=== PATIENT | female | born 1995 | race Two or more races ===

== ENCOUNTER 2017-01-18 21:19 | Inpatient (IN) | payer MEDICAID ==
[2017-01-18] MEDS ORDERED: TEMAZEPAM 15 MG CAP PO PRN (21:49)
[2017-01-18] MEDS ORDERED: ACETAMINOPHEN 325 MG TAB PO PRN (21:49)
[2017-01-18] MEDS ORDERED: ONDANSETRON 4 MG/2 ML VIAL IVP PRN (21:49)
[2017-01-18] MEDS ORDERED: ONDANSETRON DISINTEGRATING 4 MG TAB PO PRN (21:49)
[2017-01-18] MEDS ORDERED: oxyCODONE IR 5 MG TAB PO PRN (21:49)
--- NOTE | 2017-01-18 22:32 | GHP ---
[f rep st] HISTORY AND PHYSICAL DATE OF ADMISSION: 01/18/2017 CHIEF COMPLAINT: Abdominal pain. HISTORY OF PRESENT ILLNESS: This is a 21-year-old female, who is just under 2 months after a , presented with an onset of abdominal pain. This started yesterday evening, severe, associated with some nausea, but no vomiting, on the right side, radiating to her back. She lives in [place]. Because of this, she presented to the emergency department there. She was admitted. Ultrasound showed gallstones, elevated LFTs, elevated lipase. Initial plan was for a cholecystectomy, though, there became concern for common bile duct stone given the degree of elevation of her LFTs. Her AST was in the 400s and her ALT was in the 100s. Her bilirubin was just under 2. Because of this, Dr. Daniels was consulted. He recommended transfer to this hospital for interventional assessment prior to possible cholecystectomy. When I am seeing her, she is comfortable, though she received 5 mg of morphine en route. PAST MEDICAL/SURGICAL HISTORY: Shows her to have: 1. Recent . 2. Depression. MEDICATIONS: Please see medication reconciliation. ALLERGIES: none FAMILY HISTORY: Reviewed and noncontributory. SOCIAL HISTORY: She does not drink or smoke. She is accompanied by her . REVIEW OF SYSTEMS: A 10-point review of systems is conducted and is negative except per HPI. PHYSICAL EXAMINATION: GENERAL: She appears comfortable, in no acute distress. VITAL SIGNS: Her pulse is mildly low. HEENT: Normocephalic, atraumatic. CARDIOVASCULAR: Regular rate and rhythm. No murmurs, rubs, or gallops. PULMONARY: Lungs clear to auscultation bilaterally. ABDOMEN: Soft. She has no masses appreciated. She has a Keller sign and some mild right upper quadrant tenderness. SKIN: No rash. : No Chin. NEUROLOGIC: Alert and oriented x3. She is moving all extremities. PSYCHIATRIC: Normal mood and affect. affect. LABORATORY DATA: Reviewed per HPI. Notable also for a white count of 8. Lipase is 17,000. Elevated LFTs. DATA: 1. I discussed this with Dr. Lux, from [place], accepted for transfer as a direct admission. 2. I reviewed her chart from [place], what was available. IMPRESSION AND PLAN: This is a 21-year-old female, with gallstone pancreatitis , possible common bile duct stone. Gallstone pancreatitis, possible common bile duct stone: Dr. Daniels has been consulted. I agree with plans for EUS tomorrow to evaluate possible large stone. If there is a stone, he will perform an ERCP with stone extraction. She will also need a cholecystectomy at some point. I have not consulted General Surgery yet. We will make her n.p.o. , provide her supportive care including IV fluids and pain management overnight. She currently appears comfortable. I believe she got a dose of antibiotics prior to transfer, though I will not continue these now, unless she becomes febrile. I was told she was going to receive a dose of Rocephin and Flagyl, which should cover her until tomorrow morning. /[id number]/MODL MTDD
[2017-01-18] MEDS: NS 1,000 ML IV SCH ×2 (22:48→23:31)
[2017-01-19 04:53] LABS: % IMMATURE GRANULYOCYTES 0.4 % (0.0-1.1); ABSOLUTE IMMATURE GRANULOCYTES 0.04 10^3/uL (0.00-0.10); ADD DIFF? NO; HEMATOCRIT 35.6 % (38.0-47.0); HEMOGLOBIN 11.6 g/dL (12.6-16.3); MEAN CELL HEMOGLOBIN 28.6 pg (27.9-34.1); MEAN CELL HEMOGLOBIN CONCENTR. 32.6 g/dL (32.4-36.7); MEAN CELL VOLUME 87.9 fL (81.5-99.8); MEAN PLATELET VOLUME 10.5 fL (8.7-11.7); PLATELET COUNT 240 10^3/uL (150-400); RED BLOOD CELL COUNT 4.05 10^6/uL (4.18-5.33); RED CELL DISTRIBUTION WIDTH 13.2 % (11.5-15.2)
[2017-01-19 04:54] LABS: ADD MORPH? NO; ADD SCAN? NO; ATYPICAL LYMPHOCYTE FLAG 10 (0-99); FRAGMENT RBC FLAG 0 (0-99); LEFT SHIFT FLG 0 (0-99); LIPEMIA HEMOLYSIS FLAG 80 (0-99); PLATELET CLUMPS FLAG 0 (0-99)
[2017-01-19 05:05] LABS: ALANINE AMINOTRANSFERASE 214 IU/L (9-52); ALKALINE PHOSPHATASE 185 IU/L (38-126); ANION GAP 8 mEq/L (8-16); ASPARTATE AMINOTRANSFERASE 219 IU/L (14-46); CALCIUM 8.7 mg/dL (8.5-10.4); CARBON DIOXIDE 24 mEq/l (22-31); CHLORIDE 109 mEq/L (97-110); CREATININE 0.6 mg/dL (0.6-1.0); GLOMERULAR FILTRATION RATE > 60; GLUCOSE 77 mg/dL (70-100); POTASSIUM 3.9 mEq/L (3.5-5.2); SODIUM 141 mEq/L (134-144); TOTAL PROTEIN 5.5 g/dL (6.3-8.2)
--- NOTE | 2017-01-19 05:58 | SOAPPROG ---
GADIEL Progress Note Assessment/Plan: Assessment: Plan: 01/19/17 05:57 GI note Chart reviewed. Will plan on EUS/ERCP possibly today. Keep NPO Objective: Vital Signs Temp Pulse Resp BP Pulse Ox 36.9 C 60 16 98/58 L 96 01/19/17 04:00 01/19/17 04:00 01/19/17 04:00 01/19/17 04:00 01/19/17 04:00 Laboratory Results 01/19/17 04:30 01/19/17 04:30 ICD10 Worksheet Patient Problems: Problems Problem Status Onset Acute biliary pancreatitis Acute - ICD10 Problem Qualifiers (1) Acute biliary pancreatitis
[2017-01-19] MEDS: NS 1,000 ML IV SCH ×2 (08:00→22:09)
--- NOTE | 2017-01-19 08:39 | HOSPPROG ---
Hospitalist Progress Note Assessment/Plan: Patient is a 21-year-old female who is after having a . She presented with onset of abdominal pain that was quite severe. She has elevated liver enzymes. She will be seen by Dr. Daniels later today. Today is my 1st encounter with the patient chart reviewed. * gallstone pancreatitis with possible bile duct stone To get an EUS today w Dr Daniels * plan. Will await further input from Dr. Daniels and hopefully can discharge later today Subjective: Patient continues to have some right upper quadrant pain that radiates to Objective: Vital Signs Temp Pulse Resp BP Pulse Ox 36.7 C 60 16 103/50 L 96 01/19/17 07:12 01/19/17 07:12 01/19/17 07:12 01/19/17 07:12 01/19/17 07:12 Laboratory Results 01/19/17 04:30 01/19/17 04:30 01/18/17 01/19/17 01/20/17 05:59 05:59 05:59 Intake Total 1250 Balance 1250 - Physical Exam Constitutional: no apparent distress, obese, uncomfortable Eyes: PERRL Ears, Nose, Mouth, Throat: hearing normal Cardiovascular: regular rate and rhythym Respiratory: no respiratory distress Gastrointestinal: normoactive bowel sounds, tenderness (Right upper quadrant) Skin: warm, normal color Musculoskeletal: full muscle strength Psychiatric: interacting appropriately ICD10 Worksheet Patient Problems: Problems Problem Status Onset Acute biliary pancreatitis Acute
[2017-01-19] MEDS: SERTRALINE HCL 25 MG TAB PO SCH (10:27)
[2017-01-19] MEDS: PRENATAL VIT 1 EACH TAB PO SCH (10:28)
[2017-01-19] MEDS: CETIRIZINE 10 MG TAB PO SCH (10:28)
[2017-01-19] MEDS ORDERED: GLUCAGON,HUMAN RECOMBINANT 1 MG VIAL ONE (15:26)
[2017-01-19] MEDS ORDERED: IOTHALAMATE MEG (CONRAY) 50 ML VIAL IV ONE (15:26)
[2017-01-19] MEDS ORDERED: LR 1,000 ML IV ONE (16:03)
[2017-01-19] MEDS ORDERED: fentaNYL 100 MCG/2 ML INJ ONE (16:11)
[2017-01-19] MEDS ORDERED: PROPOFOL 200 MG/20 ML VIAL ONE (16:11)
[2017-01-19] MEDS ORDERED: MIDAZOLAM 2 MG/2 ML VIAL ONE (16:31)
[2017-01-19] MEDS ORDERED: LIDOCAINE 2% 100 MG/5 ML SYR ONE (16:32)
[2017-01-19] MEDS ORDERED: ROCURONIUM 50 MG/5 ML VIAL ONE (16:32)
[2017-01-19] MEDS ORDERED: levOFLOXACIN 500 MG/DEXTROSE/100 ML BAG IV ONE (16:33)
[2017-01-19] MEDS ORDERED: INDOMETHACIN 50 MG SUPP PR ONE ×2 (16:36→16:38)
--- NOTE | 2017-01-19 17:08 | PDANEPAE ---
ANE Past Medical History - Pulmonary History Hx Sleep Apnea: No Sleep Apnea Screening Result - Last Documented: Negative - Endocrine History Hx Diabetes: No - Chronic Pain History Chronic Pain: No ANE Review of Systems Review of Systems: ANE Patient History - Allergies Allergies/Adverse Reactions: No Known Allergies Allergy (Unverified 01/18/17 21:49) - Home Medications Home Medications: Loratadine 10 mg PO DAILY 01/18/17 [Last Taken 2 Weeks Ago ~01/04/17] Pnv No.95/Ferrous Fum/Folic AC [ Multivitamin Tablet] 1 each PO DAILY [Last Taken 01/18/17] Sertraline HCl [Zoloft 25mg (*)] 25 mg PO DAILY 01/18/17 [Last Taken 01/17/17] - NPO status NPO Since - Liquids (Date): 01/17/17 NPO Since - Solids (Date): 01/17/17 - Smoking Hx Smoking Status: Never smoked ANE Labs/Vital Signs - Labs Result Diagrams: 01/19/17 04:30 01/19/17 04:30 - Vital Signs Blood Pressure: 103/49 Heart Rate: 69 Respiratory Rate: 14 O2 Sat (%): 90 Height: 162.56 cm Weight: 81.647 kg ANE Physical Exam - Airway Neck exam: FROM Mallampati Score: Class 2 Mouth exam: normal dental/mouth exam - Pulmonary Pulmonary: no respiratory distress - Cardiovascular Cardiovascular: regular rate and rhythym - ASA Status ASA Status: II ANE Anesthesia Plan Anesthesia Plan: general endotracheal anesthesia Urgent/Emergent Case: Judi lara completed preop but documented later for safe timely pt care
--- NOTE | 2017-01-19 17:13 | HOSPPROG ---
Hospitalist Progress Note Assessment/Plan: Patient is a 21-year-old female who is after having a . She presented with onset of abdominal pain that was quite severe. She has elevated liver enzymes. She will be seen by Dr. Daniels later today. Today is my 1st encounter with the patient chart reviewed. * gallstone pancreatitis with possible bile duct stone To get an EUS today w Dr Daniels * plan. patient down for the procedure this evening. She will require better midnight stay after getting sedation and an and I am unclear when she will be returning to the floor. This will make her inpatient status. Will get repeat labs in the morning. Objective: Vital Signs Temp Pulse Resp BP Pulse Ox 36.7 C 69 14 103/49 L 90 L 01/19/17 15:49 01/19/17 17:08 01/19/17 17:08 01/19/17 17:08 01/19/17 17:08 Laboratory Results 01/19/17 04:30 01/19/17 04:30 01/18/17 01/19/17 01/20/17 05:59 05:59 05:59 Intake Total 1250 Balance 1250 ICD10 Worksheet Patient Problems: Problems Problem Status Onset Acute biliary pancreatitis Acute
[2017-01-19] MEDS ORDERED: GLYCOPYRROLATE 0.2 MG/1 ML VIAL ONE ×2 (17:30)
--- NOTE | 2017-01-19 17:49 | SOAPPROG ---
SOJESSICA Progress Note Assessment/Plan: Assessment: Plan: 01/19/17 05:57 GI note Chart reviewed. Will plan on EUS/ERCP possibly today. Keep NPO 01/19/17 17:46 GI note S/p EGD/EUS/ERCP. See dictated note for details. + choledocholithiasis on EUS. ERCP performed with biliary decompression. + gastritis Keep NPO till tomorrow. EBL: Minimal Meds: General. Levaquin 500mg IV X 1. Rectal Indomethacin. Objective: Vital Signs Temp Pulse Resp BP Pulse Ox 36.7 C 69 14 103/49 L 90 L 01/19/17 15:49 01/19/17 17:08 01/19/17 17:08 01/19/17 17:08 01/19/17 17:08 Laboratory Results 01/19/17 04:30 01/19/17 04:30 01/18/17 01/19/17 01/20/17 05:59 05:59 05:59 Intake Total 1250 Balance 1250 ICD10 Worksheet Patient Problems: Problems Problem Status Onset Acute biliary pancreatitis Acute - ICD10 Problem Qualifiers (1) Acute biliary pancreatitis
[2017-01-19] MEDS ORDERED: NALOXONE HCL 0.4 MG/ML INJ IVP PRN (17:54)
[2017-01-19] MEDS ORDERED: ALBUTEROL 3 ML DEYVIAL IH PRN (17:54)
[2017-01-19] MEDS ORDERED: LR 500 ML IV PRN (17:54)
[2017-01-19] MEDS ORDERED: fentaNYL 100 MCG/2 ML INJ IVP PRN (17:54)
[2017-01-19] MEDS ORDERED: MEPERIDINE 25 MG/ML SYR IVP PRN (17:54)
[2017-01-19] MEDS ORDERED: ONDANSETRON 4 MG/2 ML VIAL IVP PRN (17:54)
--- NOTE | 2017-01-19 17:55 | POSTANESTH ---
Post Anesthetic Evaluation Cardiovascular Status: Normal, Stable Respiratory Status: Normal, Stable Level of Consciousness/Mental Status: Mildly Sleepy, Arousable Pain Control: Adequate, Prn Tx Ordered Nausea/Vomiting Control: Adequate, Prn Tx Ordered Complications Possibly Related to Anesthesia: None Noted
--- NOTE | 2017-01-19 18:26 | GPN ---
[f rep st] PROCEDURE NOTE DATE OF PROCEDURE: 01/19/2017 PROCEDURE: Esophagogastroduodenoscopy with biopsy, endoscopic ultrasound. INDICATION: Nely is a 21-year-old female who presents with an episode of acute pancreatitis. She was noted to have significantly elevated LFTs including alkaline phosphatase. On imaging, she was noted to have cholelithiasis as well as a dilated CBD. She presents for further evaluation and to rule out choledocholithiasis. CONSENT: Risks, benefits, and alternatives of the procedure were discussed in great detail with the patient. Risks of infection, bleeding, perforation, sedation, and pancreatitis were discussed. All questions answered. Informed consent was obtained. MEDICATIONS: General anesthesia. Please see Anesthesia record for details. ESTIMATED BLOOD LOSS: Insignificant. ESOPHAGOGASTRODUODENOSCOPY EXAMINATION: The Olympus upper endoscope was introduced into the mouth and advanced to the esophagus. The proximal, mid, and distal esophagus were normal in appearance. The stomach was entered and closely examined, including retroflexed views of angularis, cardia, and fundus. The mucosa in the antrum and body were erythematous, and biopsies were taken. The duodenal bulb and second portion of the duodenum appeared to be normal in appearance. ENDOSCOPIC ULTRASOUND EXAMINATION: The Olympus linear echoendoscope was introduced into the mouth and advanced to the second portion of the duodenum. The esophagus, stomach, and duodenum were visualized echosonographically. The pancreas was carefully examined from the uncinate process to the tail, where the spleen was seen. The pancreatic parenchyma was normal in appearance. No mass lesion or cystic lesion was noted. The pancreatic duct was not dilated. The common bile duct was seen, and there were several small 2-3mm stones seen. No liver lesions was noted. No suspicious periportal, peripancreatic, or perigastric nodes appreciated. IMPRESSION: Choledocholithiasis. RECOMMENDATIONS: Proceed with ERCP. /[id number]/MODL MTDD
--- NOTE | 2017-01-19 18:41 | GCON ---
[f rep st] CONSULTATION DATE OF CONSULTATION: 01/19/2017 REFERRING PHYSICIAN: Phil Vargas MD REASON FOR CONSULTATION: Acute pancreatitis/Increased LFTs CHIEF COMPLAINT: Abdominal pain HISTORY OF PRESENT ILLNESS: The patient is a 21-year-old female, who presents with complaints of abdominal pain. Since approximately 20 weeks of , the patient started to have upper abdominal pain. She describes the pain as very severe, which is sharp at times. It did radiate to the back. This pain occurred on a daily basis and can last minutes to hours. Upon delivery, which was approximately 2 months ago, she states the pain got a little bit better, but recently in the last several days, the pain got more severe. She also had significant symptoms of nausea. She believes that eating can exacerbate her symptoms with no alleviating factors. She presented to a hospital in [place], [place] with significantly elevated pancreatic enzymes consistent with acute pancreatitis. On imaging, was found to have cholelithiasis with ductal dilation. It was planned for her to get a cholecystectomy, but due to the significant possibility of choledocholithiasis, she was transferred here for further evaluation. I am being asked by Dr. Vargas to evaluate this patient in consultation regarding her abnormal LFTs. PAST MEDICAL HISTORY: Depression. PAST SURGICAL HISTORY: Cholecystectomy. ALLERGIES: NKDA. MEDICATIONS: No prescription medications. FAMILY HISTORY: No history of pancreatitis. SOCIAL HISTORY: No significant alcohol or tobacco use. REVIEW OF SYSTEMS: A 12-point comprehensive review of systems was asked. Pertinent positives and negatives per HPI. PHYSICAL EXAM: VITALS: Blood pressure 103/49, heart rate 69, respirations 14. GENERAL: Awake, alert, oriented x3. No distress. HEENT: Anicteric. Moist mucosa. NECK: No JVD. CARDIOVASCULAR: Regular rate and rhythm. Positive S1 , S2. No murmur is appreciated. LUNGS: Clear to auscultation bilaterally. No wheezes, rales, rhonchi. ABDOMEN: Soft, nontender, nondistended. Positive bowel sounds. No rebound. EXTREMITIES: No cyanosis, clubbing, edema. NEUROLOGIC: Cranial nerves 2-12 grossly intact. PSYCH: Normal affect. MUSCULOSKELETAL: No obvious joint effusions. LABORATORY DATA: WBCs 9.63, hemoglobin 11.3, hematocrit 35.7. AST 219, ALT 214 , alk phos 185. Lipase 1117. BUN 7, creatinine 0.6. ASSESSMENT AND PLAN: 1. Acute pancreatitis- biliary. Due to significant elevated alkaline phosphatase as well as prior imaging which did reveal common bile duct dilation. I have a moderate suspicion that she has choledocholithiasis. At this time, I recommend to proceed with EUS to evaluate the common bile duct. If any stones are visualized, would recommend to proceed with ERCP. The risks, benefits, and alternatives of the procedure were discussed in great detail with the patient. The risk of infection, bleeding, perforation, sedation, and pancreatitis were discussed. All questions answered. Informed consent obtained. Thank you for this consultation. /[id number]/MODL MTDD
--- NOTE | 2017-01-19 18:41 | GPN ---
[f rep st] PROCEDURE NOTE DATE OF PROCEDURE: 01/19/2017 PROCEDURE: Endoscopic retrograde cholangiopancreatography with biliary sphincterotomy, stone extraction. INDICATION: Nely is a 21-year-old female who presents with acute biliary pancreatitis. An EUS was performed and revealed choledocholithiasis. She presents for further evaluation and biliary decompression. CONSENT: Risks, benefits, and alternatives of the procedure were discussed in great detail with the patient. Risks of infection, bleeding, perforation, sedation, and pancreatitis were discussed. All questions answered and informed consent obtained. MEDICATIONS: General anesthesia. Please see Anesthesia record for details. Levaquin 500 mg IV x1. Indomethacin rectal 100 mg x1. ESTIMATED BLOOD LOSS: Insignificant. DESCRIPTION OF PROCEDURE: The Olympus duodenoscope was introduced into the mouth and advanced to second portion of the duodenum. The ampulla was brought into view and was normal in appearance. Using a [employer] sphincterotome and a 0.035 inch wire, a wire was advanced into the common bile duct and intrahepatics without difficulty using the wire guided technique. A limited injection was made to confirm position. The ampullary region did appear slightly tight on initial insertion of the sphincterotome.A 1.2 cm biliary sphincterotomy was performed. An occlusion cholangiogram was performed. The cholangiogram was interpreted in real time. The flow of contrast was adequate with adequate views of the entire biliary tree. Multiple balloon sweeps were made with a 9-12 and 12-15 mm balloon with extraction of debris and a few 2 mm stones. IMPRESSION: Choledocholithiasis- status post ERCP with biliary decompression. RECOMMENDATIONS: 1. N.p.o. until tomorrow. 2. Antibiotics x5 days. 3. Consider cholecystectomy soon. /[id number]/MODL MTDD
[2017-01-19 19:50] VITALS: RESP 16
[2017-01-20] MEDS: NS 1,000 ML IV SCH (04:53)
[2017-01-20 05:36] LABS: ALBUMIN 3.4 g/dL (3.5-5.0); BILIRUBIN,TOTAL 0.8 mg/dL (0.1-1.4); BILIRUBIN-CONJUGATED 0.3 mg/dL (0.0-0.5); BILIRUBIN-UNCONJUGATED 0.5 mg/dL (0.0-1.1); TOTAL PROTEIN 6.1 g/dL (6.3-8.2)
[2017-01-20 07:29] VITALS: BP 104/46; PULSE 71; TEMP 98.1; O2SAT 97
[2017-01-20] MEDS: SERTRALINE HCL 25 MG TAB PO SCH (09:15)
[2017-01-20] MEDS: CETIRIZINE 10 MG TAB PO SCH (09:15)
[2017-01-20] MEDS: PRENATAL VIT 1 EACH TAB PO SCH (09:15)
--- NOTE | 2017-01-20 14:28 | GDS ---
[f rep st] DISCHARGE SUMMARY DISCHARGE DIAGNOSES: 1. Acute pancreatitis. 2. Abdominal pain. CONSULTATIONS: Gastroenterology. STUDIES AND PROCEDURES: 1. EUS. 2. ERCP. PHYSICAL EXAM: GENERAL: The patient is alert and oriented. VITAL SIGNS: Afebrile 36.7, pulse 71, respiratory rate 16, blood pressure is 104/46, saturating greater than 90% on room air. I have seen and evaluated the patient on the day of discharge. HOSPITAL COURSE: The patient is a 21-year-old female, who presented to the emergency room with compl aints of abdominal pain. She was evaluated and diagnosed with: Acute gallstone pancreatitis. During this hospitalization she had evaluation with an EUS as well as ERCP. It was noted the patient had gallstones as well as debris removed from her duct. Her conditio n is significantly improved, she is tolerating oral intake, her pain is well controlled and she is ea lucille to be discharged home. She has been seen with the japanese interpreter, and educated that it is r ecommended that she follow up in the outpatient setting and have surgical intervention to remove her gallbladder. The patient is in agreement with this plan. She is eager to get home as she does have twin 5-week-old babies, and wishes to follow up in the outpatient setting. I have reviewed the oziel nt's disposition with Gastroenterology, they are in agreement with this plan. DISCHARGE MEDICATIONS: Please refer to EMR form. I have provided the patient a prescription for Lev aquin 750 mg daily for a total of 5 days. FOLLOW UP: Followup will be with her primary care physician, Dr. Norma Bennett. TIME SPENT: I spent greater than 35 minutes in the care, coordination, and management of the patient 's disposition. /[id number]/MODL
--- NOTE | 2017-01-22 17:06 | ASDISCHSUM ---
Discharge Information Plan Status:Home with No Needs Medically Cleared to Leave:01/20/2017 Discharge Date:01/20/2017 02:09 PM CM D/C Disposition:Home, Routine, Self-Care ADT D/C Disposition:Home, Routine, Self-Care Projected Discharge Date:01/20/2017 12:00 AM Transportation at D/C: Discharge Delay Reason: Follow-Up Date:01/20/2017 12:00 AM Discharge Slot: Final Diagnosis: Placement Information Patient Contact Information Contact Name:EDVIN Relationship: Address:[address] Work Phone: City:[place] Phone: State/Zip Code:[place] [phone] Email: Financial Information Financial Class: Primary Plan Desc:MEDICAID [employer] [facility] Primary Plan Number:[id number] Secondary Plan Desc: Secondary Plan Number: Assessment Information [facility] CM Progress Note CM Note CM Note Notes: Chart reviewed, CM consulted NISA Bland regarding pts care. Pt is scheduled for surgery today at 4PM. Pt will most likely discharge independent without any needs. CM available for any changes. Date Signed: 01/19/2017 02:45 PM Electronically Signed By:Debbie Bah Intervention Information
== END 2017-01-20 14:09 | disposition home or self-care (01) | DRG 440 ==
LOC: F3E 21:19 → OBSVTOIN 01-19 17:13
PROVIDERS: ADMIT Student in an Organized Health Care Education/Training Program; ATTEND Student in an Organized Health Care Education/Training Program
PROC: 0DB68ZX Excision of Stomach, Via Natural or Artificial Opening Endoscopic, Diagnostic (ICD-10-PCS; principal; 2017-01-19 16:15)
PROC: 0FC98ZZ Extirpation of Matter from Common Bile Duct, Via Natural or Artificial Opening Endoscopic (ICD-10-PCS; principal; 2017-01-19 16:15)
DX: K85.10 Biliary acute pancreatitis without necrosis or infection (principal)
CPT/HCPCS: G0378; J1610; J1956; J2001; J2250; J2704; J3010; Q9961